=== PATIENT | male | born 1960 | race Caucasian/White ===

== ENCOUNTER 2019-12-03 08:13 | Outpatient (REF) | payer OTHER, SELFPAY | END 2019-12-03 08:14 | disposition home or self-care (01) | LOC: HO.LAB 08:13 | PROVIDERS: PCP Family Medicine; Visit Provider Internal Medicine | DX: Z20.828 Contact with and (suspected) exposure to other viral communicable diseases (principal) | CPT/HCPCS: 87635 ==

== ENCOUNTER 2019-12-29 08:52 | Outpatient (REF) | payer OTHER, SELFPAY | END 2019-12-29 08:53 | disposition home or self-care (01) | LOC: HO.LAB 08:52 | PROVIDERS: Visit Provider Internal Medicine | DX: Z20.828 Contact with and (suspected) exposure to other viral communicable diseases (principal) | CPT/HCPCS: U0003 ==

== ENCOUNTER 2024-03-02 15:18 | Outpatient (AMB) | payer MEDICARE, SELFPAY ==
--- NOTE | 2024-03-02 15:18 | MHC.OFFVIS ---
Intake Visit Reasons: Gastroesophageal reflux disease (GERD) Intake Note: Ayden presents as a video call today for GERD. CC: He states he deals with GERD, nausea feeling in the stomach with constipation. 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 Allergies penicillin G [PENICILLIN G] Allergy (Severe, Unverified 03/02/24 15:18) ANAPHYLAXIS hydromorphone [Dilaudid] Allergy (Unknown, Verified 03/02/24 15:18) confusion penicillin V Allergy (Unknown, Verified 03/02/24 15:18) hives Wellbutrin Allergy (Unknown, Uncoded 03/02/24 15:18) worsening depression Medication List - Last Reconciled 03/02/24 by Bri Ulloa MD aspirin 1 tab PO DAILY atorvastatin 40 mg PO DAILY carvedilol 3.125 mg PO BID duloxetine 60 mg PO DAILY lamotrigine 100 mg PO DAILY multivitamin with folic acid 400 mcg (Daily-João (with folic acid)) 1 tab PO DAILY omeprazole 20 mg PO DAILY quetiapine mg PO HPI Comments Details: 63 y.o M with PMH of who is here for unintentional weight loss x1.5 years. Reports no abd pain, but has nausea and and early satiety. Has lost almost 50 lbs in less than a year. Continues to smoke 1 PPD, used to smoke 2PPD. Also has hx of heavy etOH use but quit Oct 17 2019. Nt on any supplements. LDCT 2023 is fine. No diabetes. No fam hx of CRC. Maternal grandmother esophageal ca. Has never had a colo. Reports had prelim testing done through PCP CBC and BMP which is normal (reviewed on [facility] portal). Review of Systems Const All systems reviewed & are unremarkable except as noted in HPI and below Physical Exam Vital Signs: Video visit: No acute distress No icterus noted No facial asymmetry Speaking in full sentences Telehealth Telehealth Telehealth Platform: [facility] Location of provider rendering services: practice address Location of patient: address on file Patient Identification confirmed using: Name, : Yes Telehealth method: video Patient verbally consented to treatment: Yes Patient verbally consented to billing insurance company: Yes Patient informed of any privacy concerns related to visit: Yes Minutes spent on Phone/Video with Pt.: 26 Assessment & Plan Assessment & Plan (1) Unintentional weight loss: Code(s): R63.4 - Abnormal weight loss Category: Medical (2) Early satiety: Code(s): R68.81 - Early satiety Category: Medical Plan Ddx include chronic infections, metabolic such as hyperthyroidism, occult malignancy. Plan: - Labs as below - CT abd/pel with contrast - EGD/ colo to be booked. PEG prep Rxed and instructions reviewed. Pt also provided online link to [facility] gastro for instructions. Follow up after procedures Orders: Orders HIV Ab/Ag 03/02/24 R63.4 - Abnormal weight loss Hepatitis A IgG 03/02/24 R63.4 - Abnormal weight loss Hepatitis B Surface Antigen 03/02/24 R63.4 - Abnormal weight loss Vitamin D 25-OH Total 03/02/24 R63.4 - Abnormal weight loss TSH reflex Free T4 03/02/24 R63.4 - Abnormal weight loss Comprehensive Met. Panel 03/02/24 R63.4 - Abnormal weight loss CT abdomen pelvis w IV con 03/02/24 R63.4 - Abnormal weight loss Hepatitis B Core Antibody 03/02/24 R63.4 - Abnormal weight loss Hepatitis B Surface Antibody 03/02/24 R63.4 - Abnormal weight loss Hepatitis B Viral DNA Qn 03/02/24 R63.4 - Abnormal weight loss Hepatitis C Antibody 03/02/24 R63.4 - Abnormal weight loss Vitamin B12 and Folate 03/02/24 R63.4 - Abnormal weight loss Ferritin 03/02/24 R63.4 - Abnormal weight loss Medications: New peg 3350-electrolytes 236-22.74-6.74 -5.86 gram (Golytely) as per split prep instructions, until fecal effluent is clear 240 mL PO Q10M 4,000 mL 0RF colonoscopy Coding Level of Care Code Tele New Pt Level 4 (06515) Complex EM visit Add On G2211 Diagnoses Unintentional weight loss R63.4 Early satiety R68.81
== END 2024-03-02 16:25 | disposition home or self-care (01) ==
LOC: HO.HGI 15:18
PROVIDERS: PCP Family Medicine; Visit Provider Internal Medicine
DX: R63.4 Abnormal weight loss (principal); R68.81 Early satiety
CPT/HCPCS: 99204; G2211

== ENCOUNTER 2024-03-10 11:51 | Outpatient (REF) | payer MEDICARE, SELFPAY ==
--- NOTE | ~2024-03-10 | CT_ITS ---
EXAMINATION: CT ABDOMEN AND PELVIS WITH CONTRAST CLINICAL INFORMATION: Abnormal weight loss. 63-year-old male. COMPARISON: 07/17/2018.1 TECHNIQUE: Multidetector volumetric images were obtained from the superior aspect of the liver through the pubic symphysis following administration 85 mL of Omnipaque 350 intravenous contrast. Sagittal and coronal reformatted images were obtained on the technologist's workstation. Oral contrast: No This CT examination was performed using dose optimization techniques as appropriate, variously including the following: *Automated exposure control *Adjustment of mA and/or kV according to patient size (this includes techniques or standardized protocols for targeted exams where dose is matched to indication/reason for exam; i.e. extremities or head) *Use of iterative reconstruction technique FINDINGS: LUNG BASES: -There are mild changes of mosaic attenuation in the lung bases with mild dependent type atelectasis. There are no effusions. Heart size is normal. Moderate paraesophageal hiatus hernia the GE junction. LIVER, GALLBLADDER, AND BILIARY TREE: The liver is normal in size, shape, and attenuation. There is a 1.3 cm cyst in segment 6. No suspicious focal hepatic lesion or biliary ductal dilatation is present. The gallbladder is unremarkable with no evidence of radiopaque gallstones, gallbladder wall thickening, or obvious pericholecystic inflammatory changes. PANCREAS: Unremarkable. SPLEEN: Unremarkable. ADRENAL GLANDS: Unremarkable. KIDNEYS AND URETERS: The kidneys are normal in size, shape, and attenuation. No hydronephrosis, hydroureter, or calculi seen. No perinephric stranding. There are bilateral renal cysts, the largest in the lower pole of the right kidney measuring 3.1 cm. BLADDER: Unremarkable. GASTROINTESTINAL TRACT: -There is mild diverticulosis of the sigmoid colon. The remainder of the colon appears normal. -Moderate paraesophageal hiatus hernia. -Mild wall thickening of the stomach, particularly the fundus and body, may suggest gastritis. -There is no duodenal abnormality. -Mild thickening of the proximal jejunal folds, which may be artifactual or conversely may represent inflammatory or infectious enteritis. Malabsorption disorders should be considered as well. -Normal appendix is visualized. -No rectal abnormality. ABDOMINAL WALL: No significant hernia is appreciated. LYMPH NODES: There is no abnormal lymphadenopathy present. VASCULAR: Mild vascular calcifications. No aortic aneurysm. -No venous thrombosis. PELVIC VISCERA: Mild prostate enlargement is present, with eccentric calcifications. Prostate diameter is 4.4 cm. OSSEOUS STRUCTURES: -No suspicious lytic or blastic bone lesions. -Mild arthritic changes in the spine and bilateral SI joints. CT/CT abdomen pelvis w IV con IMPRESSION: 1. Mild proximal small bowel fold thickening, which could suggest underlying enteritis. Consider inflammatory, infectious, and malabsorptive disorders. 2. Mild thickening of the folds of the stomach, most notable in the fundus and body, for which gastritis is a consideration. 3. There is a moderate-sized paraesophageal hiatus hernia. 4. Bilateral renal cysts. Electronically signed by: Curtis Covarrubias MD 03/10/2024 02:10 PM [facility]
[2024-03-10 12:46] LABS: Alanine Aminotransferase 20 U/L (0-40); Alkaline Phosphatase 72 U/L (39-117); Anion Gap 7 (12-20); Aspartate Amino Transferase 31 U/L (5-37); Bilirubin Total 0.4 mg/dL (0.0-1.0); Blood Urea Nitrogen 12 mg/dL (9-16); Calcium 9.4 mg/dL (8.4-10.2); Carbon Dioxide 32 mmol/L (22-29); Chloride 107 mmol/L (96-108); Estimated Glomerular Filt Rate > 60; Glucose Random 112 mg/dL (60-115); Potassium 4.5 mmol/L (3.3-5.1); Sodium 141 mmol/L (135-145)
[2024-03-10 12:55] LABS: Ferritin 51 ng/mL (20-250); TSH reflex Free T4 0.87 uIU/mL (0.32-4.0); Vitamin D 25-OH Total 37.4 ng/mL (>30)
[2024-03-10 13:11] LABS: HBS Num1 10.93 mIU/mL (0-7.99); HBc Num1 0.05 S/CO (0.00-0.79); HBsAGNum1 0.34 S/CO (0.00-0.99); HIV AB/AG Nonreactive (Nonreactive); HIV Num 1 0.06 S/CO (0.00-0.99); Hepatitis A Antibody IgG REACTIVE (Nonreactive); Hepatitis B Core Antibody Nonreactive (Nonreactive); Hepatitis B Surface Antigen Negative (Negative); ~HepC Num1 0.09 S/CO (0.00-0.79); ~Hepatitis A Antibody IgG 11.35 S/CO (0.00-0.99); ~Hepatitis C Antibody Nonreactive (Nonreactive)
[2024-03-10 13:28] LABS: Folate 18.9 ng/mL (> or = 4.0); Vitamin B12 435 pg/mL (200-900)
[2024-03-10] MEDS: iohexoL 350 MG/ML 75 ML INFUS..BTL 85 ML IV (13:31)
[2024-03-10 14:46] LABS: HBS Num2 11.33 mIU/mL (0-7.99); HBS Num3 11.44 mIU/mL (0-7.99); ~Hepatitis B Surface Antibody GRAYZONE (Nonreactive)
[2024-03-11 19:18] LABS: Hepatitis B Viral DNA Qn - cp NOT DETECTED Log IU/mL (NOT DETECTED); Hepatitis B Viral DNA Qn-IU/mL NOT DETECTED (NOT DETECTED)
== END 2024-03-10 11:52 | disposition home or self-care (01) ==
LOC: HO.CT 11:51
PROVIDERS: PCP Family Medicine; Visit Provider Internal Medicine
DX: R63.4 Abnormal weight loss (principal); Z11.4 Encounter for screening for human immunodeficiency virus [HIV]
CPT/HCPCS: 36415; 74177; 80053; 82306; 82607; 82728; 82746; 84443; 86704; 86706; 86708; 86803; 87340; 87389; 87517; Q9967

== ENCOUNTER → 2024-03-10 12:04 | Outpatient (BNV) | payer MEDICARE, SELFPAY | PROVIDERS: PCP Family Medicine; Visit Provider Radiology Diagnostic Radiology | DX: R63.4 Abnormal weight loss (principal) | CPT/HCPCS: 74177 ==

== ENCOUNTER 2024-05-19 09:44 | Day surgery (SDC) | payer MEDICARE, SELFPAY ==
[2024-05-15 13:39] VITALS: BMI 21.5
--- NOTE | 2024-05-15 13:54 | HO.ANESPROP2 ---
Documented by User: Nancy Carolina NP 05/15/24 14:02 HPI - Anesthesia Eval Consult details Narrative: 63yo M for Colonoscopy, Push Enteroscopy Follows [facility] cardiology for: htn/hld, trace aortic regurg, nonobstructive mild CAD. Stable at 01/2024 office visit [facility] Active Problems Active Problems: All Active Problems Early satiety (Acute) Unintentional weight loss (Acute) Past Medical History Medical History Tobacco use disorder Nonobstructive atherosclerosis of coronary artery Iron deficiency anemia Hypercholesterolemia EMMA (generalized anxiety disorder) GERD (gastroesophageal reflux disease) Bipolar depression Alcohol dependence in remission Surgical History Surgical History Hx of eye surgery Social History Social History Are you a primary career development director to a significant other at home: No Do you presently have visiting nurse or other home services: No Patient Tobacco Use Status: Current everyday Tobacco user Tobacco use type: Cigarette Cigarettes Per Day: 10 Use of substances other than those prescribed or required for medical reasons: Yes Substance Use Frequency: Socially Have you been hit, kicked, punched, or otherwise hurt by someone within the past year? If so, by whom?: No Are you DNR?: No Advance Directives: No Advance Directives Information Provided: Yes Recently lost weight without trying: No Nutrition Risks: No Nutritional Risk Meds Allergies Allergy/AdvReac Type Severity Reaction Status Date / Time Penicillins Allergy Severe Anaphylaxis Verified 05/19/24 11:05 bupropion [From Wellbutrin] Allergy Intermediate increased Verified 05/19/24 11:05 depression symptoms hydromorphone [Dilaudid] Allergy Intermediate confusion Verified 05/19/24 11:05 Home Medications ?Medication ?Instructions ?Recorded ?Confirmed ?Last Taken ?Type aspirin 81 mg chewable tablet 1 tab PO DAILY 03/02/24 03/02/24 Unknown History atorvastatin 40 mg tablet 40 mg PO DAILY 03/02/24 03/02/24 Unknown History carvedilol 3.125 mg tablet 3.125 mg PO BID 03/02/24 05/19/24 05/19/24 History duloxetine 60 mg capsule,delayed 60 mg PO DAILY 03/02/24 03/02/24 Unknown History release lamotrigine 100 mg tablet 100 mg PO DAILY 03/02/24 03/02/24 Unknown History multivitamin with folic acid 400 1 tab PO DAILY 03/02/24 05/19/24 05/19/24 History mcg tablet (Daily-João (with folic acid)) omeprazole 20 mg capsule,delayed 20 mg PO DAILY 03/02/24 05/19/24 05/19/24 History release quetiapine 25 mg tablet 75 mg PO BEDTIME 03/02/24 03/02/24 Unknown History Exam Height,Weight and Vital Signs: Height 6 ft 0.05 in Weight 72.1 kg Pertinent Lab Results Pertinent Lab Results: Cardiology Labs WBC: 7.3 x10E3/uL (09/13/23) RBC: 4.63 (09/13/23) Hgb: 14.2 Gm/dL (09/13/23) Hct: 43.6 % (09/13/23) MCV: 94 fL (09/13/23) MCH: 30.7 pg (09/13/23) MCHC: 32.6 Gm/dL (09/13/23) Platelet Count: 280 x10E3/uL (09/13/23) Abs. Neut: 4.6 x10E3/uL (09/13/23) Abs. Lymph: 1.7 x10E3/uL (09/13/23) Abs. [place]: 0.6 x10E3/uL (09/13/23) Abs. Eo: 0.3 x10E3/uL (09/13/23) Abs. Baso: 0.1 x10E3/uL (09/13/23) Neut %: 62 % (09/13/23) [place] %: 8 % (09/13/23) Eos %: 5 % (09/13/23) Baso %: 1 % (09/13/23) Imm Gran: 0 % (09/13/23) Abs. Imm Gran: 0 x10E3/uL (09/13/23) Sodium: 140 mmol/L (08/01/23) Potassium: 4.2 mmol/L (08/01/23) Chloride: 105 mmol/L (08/01/23) Bicarbonate Level: 25 mmol/L (08/01/23) Glucose Level: 94 mg/dL (08/01/23) BUN: 13 mg/dL (08/01/23) Creatinine-Blood: 0.82 mg/dL (08/01/23) Calcium: 9.2 mg/dL (08/01/23) Protein, Total: 6.3 g/dL (08/01/23) Albumin: 4 g/dL (08/01/23) Alkaline Phosphatase: 65 IU/L (08/01/23) AST (SGOT): 22 IU/L (08/01/23) ALT (SGPT): 13 IU/L (08/01/23) Bilirubin, Total: 0.4 mg/dL (08/01/23) Cholesterol: 150 mg/dL (08/01/23) Triglycerides: 67 mg/dL (08/01/23) HDL Cholesterol: 61 mg/dL (08/01/23) Non HDL Cholesterol: 89 mg/dL (08/01/23) LDL Chol Calc (NIH): 76 mg/dL (08/01/23) Narrative Narrative: CTCT Heart/Coronary/3D/Morph ? 14:05:48 IMPRESSION: The mid LAD is suboptimally seen, with believed less than 50% stenosis. Small mixed plaque at the proximal circumflex, causing no significant stenosis. Moderate size type 3 paraesophageal hernia. Left upper lobe subpleural reticulation, suggesting smoking-related interstitial lung disease. I have personally reviewed the images and I agree with this report. WSN: [id number] Ordering Physician: Jef Hill ? Signed By: Rosey Kessler MD ECGECG 12-Lead ? 09:18:14 Ventricular Rate: 59 BPM Atrial Rate: 59 BPM P-R Interval: 184 ms QRS Duration: 100 ms Q-T Interval: 446 ms QTC Calculation(Bazett): 441 ms P [place]: 64 degrees R [place]: 31 degrees T [place]: 71 degrees Sinus bradycardia with Premature atrial complexes Otherwise normal ECG When compared with ECG of 06-OCT-2019 15:20, Vent. rate has decreased BY 42 BPM Confirmed by SHELLY BARROSO ([id number]) on 10/23/2022 4:43:36 PM [place]: SHELLY BARROSO ? Signed By: Shelly Barroso MD ? ECG 12-Lead ? 09:18:14 Please click on pdf link to open report ? Signed By: Shelly Barroso MD Stress Test NM Myocard Perf SPECT Multi ? 00:00:00 Summary 1. Nuclear tracer uptake is generally better after submaximal stress than at rest due to patient motion and visceral uptake at rest. There is apical thinning, which does not appear to be significant. No definite myocardial scar or ischemia. 2. Normal LV function with ejection fraction greater than 60% at rest and after stress. 3. The ECG findings will be reported separately. Signatures _ _ ? Signed By: Benedicto LEVI, Rk Wells EchoEchocardiogram - Complete ? 13:23:45 Summary 1. Sinus bradycardia at rest. 2. Normal left ventricular wall thickness. Mildly increased left ventricular volume. Normal left ventricular systolic function. Left ventricular ejection fraction is 61 % by biplane Koroma?s estimation. No regional wall motion abnormalities. Diastolic function was indeterminate on the basis of available data. 3. The left atrium is severely dilated.. 4. The right ventricle is severely dilated. Right ventricular systolic function is normal. 5. Trace aortic, mitral, and tricuspid regurgitation. 6. The pulmonary artery systolic pressure estimation is 23 mmHg plus the CVP or right atrial pressure. 7. The inferior vena cava is dilated (> 2.1 cm) with preserved (> 50%) inspiratory collapse, consistent with an elevated right atrial pressure of approximately 15 mmHg. 8. There is no significant pericardial effusion. 9. The ascending aorta and aortic root are normal in size. Comparison Comparison is made to the study of February 06, 2019. LV function is improved. Signature ? Signed By: Pipe LEVI, Conrado Belcher VL StudiesVL Carotid Duplex Scan Bilat ? 09:37:11 Summary: Right Side: Minimal atherosclerotic plaque with no significant stenosis in the Internal Carotid Artery. Antegrade flow in the Vertebral Artery. Multiphasic flow is seen in the Subclavian Artery. Left Side: Minimal atherosclerotic plaque with no significant stenosis in the Internal Carotid Artery. Antegrade flow in the Vertebral Artery. Multiphasic flow is seen in the Subclavian Artery. No prior exam. Assessment and Plan Assessment Anesthesia Assessment: Chart Reviewed Documented by User: Guero Rea MD 05/19/24 12:55 PMFSH Past Medical History Medical History Tobacco use disorder Nonobstructive atherosclerosis of coronary artery Iron deficiency anemia Hypercholesterolemia EMMA (generalized anxiety disorder) GERD (gastroesophageal reflux disease) Bipolar depression Alcohol dependence in remission Family History Family history of problems with anesthesia: No Surgical History Surgical History Hx of eye surgery History of Problems with Anesthesia: No Social History Social History Are you a primary career development director to a significant other at home: No Do you presently have visiting nurse or other home services: No Patient Tobacco Use Status: Current everyday Tobacco user Tobacco use type: Cigarette Cigarettes Per Day: 10 Use of substances other than those prescribed or required for medical reasons: Yes Substance Use Frequency: Socially Have you been hit, kicked, punched, or otherwise hurt by someone within the past year? If so, by whom?: No Are you DNR?: No Advance Directives: No Advance Directives Information Provided: Yes Recently lost weight without trying: No Nutrition Risks: No Nutritional Risk Meds Allergies Allergy/AdvReac Type Severity Reaction Status Date / Time Penicillins Allergy Severe Anaphylaxis Verified 05/19/24 11:05 bupropion [From Wellbutrin] Allergy Intermediate increased Verified 05/19/24 11:05 depression symptoms hydromorphone [Dilaudid] Allergy Intermediate confusion Verified 05/19/24 11:05 Home Medications ?Medication ?Instructions ?Recorded ?Confirmed ?Last Taken ?Type aspirin 81 mg chewable tablet 1 tab PO DAILY 03/02/24 03/02/24 Unknown History atorvastatin 40 mg tablet 40 mg PO DAILY 03/02/24 03/02/24 Unknown History carvedilol 3.125 mg tablet 3.125 mg PO BID 03/02/24 05/19/24 05/19/24 History duloxetine 60 mg capsule,delayed 60 mg PO DAILY 03/02/24 03/02/24 Unknown History release lamotrigine 100 mg tablet 100 mg PO DAILY 03/02/24 03/02/24 Unknown History multivitamin with folic acid 400 1 tab PO DAILY 03/02/24 05/19/24 05/19/24 History mcg tablet (Daily-João (with folic acid)) omeprazole 20 mg capsule,delayed 20 mg PO DAILY 03/02/24 05/19/24 05/19/24 History release quetiapine 25 mg tablet 75 mg PO BEDTIME 03/02/24 03/02/24 Unknown History Exam Airway Mallampati Class: II TM Dist: <=3cm Neck ROM: Full Partial: Upper and Lower Heart: ok, see above Lungs: ok. Assessment and Plan Assessment Anesthesia Assessment: Anesthesia Plan Discussed Final Anesthetic Review Family History of Problems with Anesthesia: No History of Problems with Anesthesia: No NPO: Yes ASA Class: II Final Preanesthetic Review: No Changes in Pt Med Stat, Meds/Allgs Chart Reviewed, Consent Obtained/Reviewed and Anes Risks/Benef Reviewed Patient Risk: Intermediate Procedure Risk: Intermediate Anesthetic Plan Anesthetic Plan: Agree w/ Assess. and Plan and TIVA Disposition: Standard PACU
--- NOTE | ~2024-05-19 | XR_ITS ---
EXAMINATION: XR ABDOMEN 1 VIEW (KUB) HISTORY: Foreign body localization COMPARISON: There are no prior studies for comparison. FINDINGS: A single supine view of the abdomen is submitted. The bowel gas pattern is unremarkable, without evidence of mechanical obstruction. A metallic clip is seen overlying the left iliac wing may be within the descending colon. There are calcifications of the prostate. There are no abnormal soft tissue masses. The bones are intact. XR/XR KUB IMPRESSION: Metallic clip overlying the left iliac wing which may be within the descending colon. Electronically signed by: Kannan Castano MD 05/20/2024 09:00 AM EDT RP
[2024-05-19 10:59] VITALS: BP 130/74; PULSE 66; RESP 14; TEMP 36.8; O2SAT 98
[2024-05-19] MEDS: Lactated Ringers 1,000 ML 100 ML IVCONT (11:03)
--- NOTE | 2024-05-19 12:44 | MHC.SHP ---
Pre-Procedural Eval Section A - 24 Hr Update-Section A only Date of Service: 05/19/24 Section B - Complete if H&P > 30 days Chief Complaint: Abnormal weight loss,Early satiety Details of Present Illness: CAD, tobacco use, prev etOH use Present Medications: see Short Stay Collaborative assessment Allergies: Allergies Allergy/AdvReac Type Severity Reaction Status Date / Time Penicillins Allergy Severe Anaphylaxis Verified 05/19/24 11:05 bupropion [From Wellbutrin] Allergy Intermediate increased Verified 05/19/24 11:05 depression symptoms hydromorphone [Dilaudid] Allergy Intermediate confusion Verified 05/19/24 11:05 Review of Systems Review of Systems Comment: Ten point ROS negative Exam Exam Comment: Gen appear: No acute distress HEENT: no icterus Chest: No overt resp distress Abd: soft, nontender, nondistended Psych: Stable affect, answering questions appropriately Neuro: A/Ox3 noted to move all extremities spontaneously Ext: no peripheral edema Plan Diagnosis/Plan: Unchanged I have reviewed the history and physical and performed a pertinent physical examination on my patient. No changes have occurred unless specified. Time Spent With Patient Time: Total time managing care of this patient today ____ minutes.
--- NOTE | 2024-05-19 13:40 | P.OPN-COLO_ITS ---
Colonoscopy Operative Note Operative Note Date of Service: 05/19/24 Narrative: Procedure: Push enteroscopy and colonoscopy Indication: Nausea, vomiting, unintentional weight loss Endoscopist: Bri Ulloa MD Anesthesia Provider: Dr Guero Rea Anesthesia type: MAC Instrument: [id number] EGD Procedure:?? The procedure, indications, preparation and potential complications were reviewed with the patient, who indicated understanding and gave written informed consent to proceed. The endoscope was introduced through the mouth, and advanced to the proximal jejunum. The mucosa was carefully examined on slow withdrawal of the endoscope. The patient tolerated the procedure well. There were no immediate complications.? EGD Findings:? * Esophagus:? Normal esophageal mucosa was noted. The Z-line was at 35 cm displaced by a large paraesophageal hernia with the diaphragmatic pinch at 42 cm. * Stomach:? Erythema and erosions in the antrum. Retroflexion was performed in the cardia that showed Hill grade IV hiatal hernia. Cold forceps biopsies were taken from the gastric body and antrum. * Duodenum:? Normal duodenal mucosa. Cold forceps biopsies were taken from the duodenal bulb and 2nd portion of the duodenum to rule out celiac sprue. * Jejunum: Cold forceps biopsies were taken from the jejunal mucosa. An endoclip was placed to lala the location of the extent of the scope reach. Colonoscopy Procedure:? The patient was then turned for the colonoscopy. A digital rectal exam was performed which was normal.? A distal attachment cap was affixed to the tip of the scope and the colonoscope was then inserted through the anus and advanced through the colon and advanced to the cecum at 75 cm and terminal ileum.? Appendiceal orifice and ileocecal valve were identified. Mucosa was carefully examined under high definition white light as the instrument was slowly withdrawn in a retrograde panoramic fashion. Retroflexion was performed in ascending colon and rectum. The procedure was not difficult. The quality of the prep was BBPS: 3+2+3 = adequate Withdrawal time 10 minutes Limitations: No limitations Findings: Mucosa: Normal colon and terminal ileum mucosa. Protruding lesions: * 1 sessile polyp of size 5 mm in transverse colon. Cold snare polypectomy was performed. The polyp was completely removed and retrieved. * Small internal hemorrhoids without stigmata of recent bleeding. Excavated lesions: * Mild diverticulosis of left colon. Impression: 1. Normal esophagus 2. Large paraesophageal hernia 3. Gastritis (biopsy) 4. Normal duodenum (biopsy) 5. Normal jejunum (biopsy, endoclip) 6. Normal colon and terminal ileum mucosa 7. One polyp removed 8. Diverticulosis 9. Internal hemorrhoids Recommendations:?? * Pt reports resolution of N/V and weight stable. Associates lack of appetite to the times he smokes excessively. * Follow-up path results. If normal, further work up for unintentional weight loss contingent on overall clinical course. * If has recurrent N/V, may need surgical evaluation for large hiatal hernia. * Avoid NSAIDs * Repeat colonoscopy for CRC screening in 7 years.
[2024-05-19 13:43] VITALS: BP 116/70; PULSE 67; RESP 16; TEMP 36.8; O2SAT 97
[2024-05-19 13:58] VITALS: BP 118/61; PULSE 54; RESP 16; TEMP 36.8; O2SAT 98
== END 2024-05-19 14:30 | disposition home or self-care (01) ==
PROVIDERS: PCP Family Medicine; Visit Provider Internal Medicine
PROC: 0DJD8ZZ Inspection of Lower Intestinal Tract, Via Natural or Artificial Opening Endoscopic (ICD-10-PCS; CPT 45378; principal; 2024-05-19 12:00)
PROC: (CPT 45385; 2024-05-19 12:00)
DX: R63.4 Abnormal weight loss (principal); R68.81 Early satiety; D12.3 Benign neoplasm of transverse colon; K57.30 Diverticulosis of large intestine without perforation or abscess without bleeding; K64.8 Other hemorrhoids; R11.2 Nausea with vomiting, unspecified; K21.9 Gastro-esophageal reflux disease without esophagitis; K29.50 Unspecified chronic gastritis without bleeding; K29.80 Duodenitis without bleeding; K44.9 Diaphragmatic hernia without obstruction or gangrene; I25.10 Atherosclerotic heart disease of native coronary artery without angina pectoris; E78.00 Pure hypercholesterolemia, unspecified; D50.9 Iron deficiency anemia, unspecified; F10.11 Alcohol abuse, in remission; F41.1 Generalized anxiety disorder; F17.210 Nicotine dependence, cigarettes, uncomplicated; Z88.0 Allergy status to penicillin; Z79.82 Long term (current) use of aspirin; Z79.899 Other long term (current) drug therapy; Z88.8 Allergy status to other drugs, medicaments and biological substances; Z88.5 Allergy status to narcotic agent; F31.9 Bipolar disorder, unspecified
CPT/HCPCS: 45385; 43239; 74018; 88305; 88313; 88342; J2003; J2704; J3010

== ENCOUNTER → 2024-05-19 09:44 | Outpatient (BNV) | payer MEDICARE, SELFPAY | PROVIDERS: PCP Family Medicine; Visit Provider Internal Medicine | DX: R11.2 Nausea with vomiting, unspecified (principal); D12.3 Benign neoplasm of transverse colon; K64.8 Other hemorrhoids; K57.30 Diverticulosis of large intestine without perforation or abscess without bleeding; R63.4 Abnormal weight loss | CPT/HCPCS: 43239; 45385 ==

== ENCOUNTER → 2024-05-19 13:50 | Outpatient (BNV) | payer MEDICARE, SELFPAY | PROVIDERS: PCP Family Medicine; Visit Provider Radiology Diagnostic Radiology | DX: M79.5 Residual foreign body in soft tissue (principal) | CPT/HCPCS: 74018 ==